=== PATIENT | female | born 1950 | race Caucasian/White ===

== ENCOUNTER 2016-11-23 14:54 | Emergency (ER) | payer MEDICARE, OTHER ==
--- NOTE | ~2016-11-23 | CT99 ---
[facility] A Service of [facility] RADIOLOGY TEXT RESULTS PATIENT: YURI GARNER LOCATION: [facility] : 48 UNIT #: [id number] AGE: [address]: An Lisa SEX: F ORDER DR: [id number] [facility]. [place], [place] [address] [id number] MR#: [id number] Acc #: [id number] NAME: YURI GARNER. : 1950 SEX: F STUDY DATE/TIME: 11/23/2016 16:13 UNIT: [facility] ROOM: STUDY DESCRIPTION: CT Maxillofacial Area W Cont Attending Physician: An Lisa P.A.-C. Ordering Physician: An Lisa P.A.-C. Primary Care Physician: Dirk Williamson D.O. MEDICAL IMAGING REPORT This report is preliminary unless electronic signature is present EXAM Facial CT with contrast, 11/23/2016. HISTORY 66-year-old female complaining of soft tissue swelling and inflammation over the left eye beginning last evening. No reported acute traumatic injury. TECHNIQUE Facial CT examination was performed with IV contrast using axial images. Multiplanar images were reconstructed. This CT exam was performed with one or more of the following radiation dose reduction techniques: automatic exposure control, adjustment of mA and/or kV according to patient size, and iterative reconstruction. FINDINGS The examination shows skin thickening and subcutaneous soft tissue stranding superficial to the left orbit and left maxilla. The intraorbital contents appear normal. No evidence of abscess or other fluid collection. Osseous structures of the orbits, maxillofacial skull, and mandible are within normal limits. Mild mucosal thickening is present within the frontal and ethmoid sinuses. IMPRESSION 1. Cutaneous and subcutaneous inflammation superficial to the left orbit and maxilla. No abscess or other fluid collection is demonstrated. Intraorbital contents appear normal. 2. Mild frontal and ethmoid sinus mucosal thickening. Dictated by... [facility] A Service [facility] RADIOLOGY TEXT RESULTS PATIENT: YURI GARNER LOCATION: [facility] : 48 UNIT #: [id number] AGE: [address]: An Lisa SEX: F ORDER DR: Garry Dash M.D. THIS IS AN ELECTRONICALLY VERIFIED REPORT Garry Dash M.D. at 11/25/2016 8:50 AM RGW/cassia TD: 11/24/2016 10:12 JOB #: [id number] MEDICAL IMAGING REPORT Page 1 of 1 COPY
[~2016-11-23 14:54] MED LIST: ACETAMINOPHEN PO; CIPRO PO; GLUCOSAMINE CHON; LEVAQUIN PO; MOBIC PO; NEXIUM PO; TUSSIONEX PENN473 ML
[2016-11-23 16:06] LABS: BASOPHIL# 0.1 X10e3 (0-0.3); BASOPHIL% 1.5 % (0-2.5); EOSINOPHIL# 0.4 X10e3 (0-0.7); EOSINOPHIL% 6.5 % (0.0-7.0); HEMATOCRIT 38.1 % (35.0-45.0); HEMOGLOBIN 12.5 gm/dL (12.0-16.0); LYMPHOCYTE# 1.8 X10e3 (1.0-3.5); LYMPHOCYTE% 32.2 % (17.0-45.0); MEAN CELL VOLUME 90.3 FL (83-96); MEAN CORPUSCULAR HEMOGLOBIN 29.7 PG (28-34); MEAN CORPUSCULAR HGB CONC 32.9 g/dL (30-36); MEAN PLATELET VOLUME 9.7 FL (6.5-11.5); MONOCYTE# 0.5 X10e3 (0-1.0); MONOCYTE% 8.8 % (3.0-12.0); NEUTROPHIL# 2.8 X10e3 (1.5-7.1); PLATELET COUNT 191 X10e3 (140-420); RED BLOOD COUNT 4.22 X10e (3.90-5.30); RED CELL DISTRIBUTION WIDTH 13.2 % (11.0-15.5); WHITE BLOOD COUNT 5.4 X10e3 (4.0-10.5)
[2016-11-23 16:09] LABS: DIFF IND NO
[2016-11-23 16:27] LABS: BUN/CREATININE RATIO 14.44; CALCIUM SERUM 8.6 mg/dL (8.4-10.2); CREATININE SERUM 0.9 mg/dL (0.6-1.4); GLOM FILT RATE Estimated 66.2 mL/min (>60); POTASSIUM 3.8 mmol/L (3.5-5.1)
[2016-11-23 16:51] LABS: POC - CREATININE 0.65 mg/dL (0.44-1.03); POC - GFR >60.0 mL/min (>60)
== END 2016-11-23 17:32 | disposition home or self-care (01) ==
LOC: CFTX 14:54 → CED 14:54 → CFTX 15:38
PROVIDERS: Physician Assistant
DX: L03.211 Cellulitis of face (principal); I48.91 Unspecified atrial fibrillation; F17.210 Nicotine dependence, cigarettes, uncomplicated; Z90.49 Acquired absence of other specified parts of digestive tract; Z88.5 Allergy status to narcotic agent; Z88.8 Allergy status to other drugs, medicaments and biological substances; Z23 Encounter for immunization; W57.XXXA Bitten or stung by nonvenomous insect and other nonvenomous arthropods, initial encounter; Y92.89 Other specified places as the place of occurrence of the external cause
CPT/HCPCS: 36415; 70487; 80048; 82565; 85025; 90471; 90715; 96365; 96375; 99284; J0696; J1200; J1885; J2930; Q9967